=== PATIENT | female | born 1960 | race Asian ===

== ENCOUNTER 2025-02-05 11:09 | Emergency (ER) | payer BC ==
[~2025-02-05] VITALS: Ht 142.2 cm; Wt 48.4 kg
[2025-02-05] MEDS ORDERED: VENTOLIN HFA18 GM INH (12:33)
[2025-02-05 13:01] LABS: BASOPHILS 0.3 % (0.1-1.2); EOSINOPHILS 0.7 % (0.7-5.8); LYMPHOCYTES 6.5 % (19.3-51.7); MCH 24.5 PG (25.6-32.2); MCHC 31.6 g/dL (32.2-35.5); MCV 77.6 fL (79.4-94.8); MONOCYTES 6.3 % (4.7-12.5); NEUTROPHILS 85.7 % (34.0-71.1); RBC 5.14 M/uL (3.93-5.22)
[2025-02-05 13:22] LABS: ALT (SGPT) 82.0 U/L (14-59); AST (SGOT) 93.0 U/L (15-37); GLOMERULAR FILTRATION RATE,EST 91.0 mL/min (>60); PROTEIN, TOTAL 7.8 g/dL (6.4-8.2); UREA NITROGEN 15.0 mg/dL (7-18)
[2025-02-05] MEDS ORDERED: AZITHROMYCIN 500 MG in DEXTROSE 5% 250 ML IV ONE (13:30)
[2025-02-05] MEDS ORDERED: ZITHROMAX250 MG PO (13:31)
[2025-02-05] MEDS ORDERED: AMOX TR-K CLV1 EAC1 PO (13:31)
[2025-02-05] MEDS ORDERED: ONDANSETRON ODT4 MG PO (13:32)
[2025-02-05 13:37] LABS: CORONAVIRUS COVID-19 AG NEGATIVE (NEGATIVE)
[2025-02-05] MEDS ORDERED: SODIUM CHLORIDE 0.9% 1,000 ML IV PRN ×2 (14:00→15:30)
[2025-02-05 17:18] LABS: BLOOD/HGB, URINE TRACE-I (Negative); KETONE, URINE SMALL (Negative); LEUK ESTERASE, URINE NEGATIVE (negative); NITRITE, URINE NEGATIVE (negative)
[2025-02-05 17:27] LABS: BACTERIA, URINE NONE SEEN /hpf (negative); CASTS, URINE NONE SEEN \\lpf; CRYSTALS, URINE NONE SEEN (0-1+); EPITHELIAL CELLS, URINE SQUAMOUS 1+ /lpf (0-1+); REFLEX CULTURE, URINE No (No)
[2025-02-05 18:00] VITALS: BP 120/81
[2025-02-06 12:02] LABS: PARASITES SMEAR GIEMSA STN,BLD Negative (Negative)
[2025-02-07 03:47] LABS: QUANTIFERON MITOGEN MINUS NIL 8.43 IU/mL (()); QUANTIFERON NIL 1.57 IU/mL (()); QUANTIFERON PLUS TB1 MINUS NIL 0.00 IU/mL (<=0.34); QUANTIFERON PLUS TB2 MINUS NIL 0.00 IU/mL (<=0.34); QUANTIFERON TB GOLD PLUS Negative (Negative)
== END 2025-02-05 18:30 | disposition home or self-care (01) ==
LOC: ED 11:09
PROVIDERS: Emergency Medicine
DX: J18.9 Pneumonia, unspecified organism (principal); Z79.899 Other long term (current) drug therapy
CPT/HCPCS: 36415; 71045; 80053; 81001; 85025; 87207; 96361; 96365; 96367; 99284-25; J0456; J0696; J7030; J7060